=== PATIENT | female | born 1950 | race Caucasian/White ===

== ENCOUNTER 2017-03-01 13:06 | Emergency (ER) | payer OTHER, MEDICARE ==
[2017-03-01] MEDS ORDERED: ALBUTEROL SULFATE 0.083% NEB 2.5 MG/3 ML AMPUL NEB ONE (13:20)
[2017-03-01] MEDS ORDERED: IPRATROPIUM/ALBUTEROL 0.5-2.5 MG/3 ML AMPUL NEB ONE (13:20)
--- NOTE | 2017-03-01 13:21 | ER Document Report ---
ED Respiratory Problem - General Chief Complaint: Altered Mental Status Stated Complaint: ALTERED MENTAL STATUS Time Seen by Provider: 03/01/17 13:10 Mode of Arrival: Ambulatory Information source: Patient Notes: Patient is a 66-year-old female on hospice with a DNR due to her COPD and chronic respiratory failure who presents to the ER today for 30 hours of drowsiness. states that she did hit her head on a cabinet 2 days ago and has been very sleepy since. He states the last time she was this drowsy her CO2 was high and she was admitted to the hospital which is happened multiple times. She denies any nausea, vomiting. She has BiPAP and is on 7 L of oxygen at home. states she has not been using her BiPAP because she does not like the mask. She also takes ipratropium and albuterol treatments at home which she has not been on because she does not like the mask. She still smokes every day. TRAVEL OUTSIDE OF THE [place] IN LAST 30 DAYS: No - Related Data Allergies/Adverse Reactions: Sulfa (Sulfonamide Antibiotics) Allergy (Severe, Verified 06/24/16 10:57) Past Medical History - General Information source: Patient, Relative - Social History Smoking Status: Current Every Day Smoker Family History: None - Past Medical History Cardiac Medical History: Reports: Hx Hypercholesterolemia Denies: Hx Coronary Artery Disease, Hx Heart Attack, Hx Hypertension Pulmonary Medical History: Reports: Hx COPD Denies: Hx Asthma, Hx Bronchitis, Hx Pneumonia Neurological Medical History: Denies: Hx Cerebrovascular Accident, Hx Seizures Endocrine Medical History: Reports: Hx Hypothyroidism GI Medical History: Reports: Hx Gastroesophageal Reflux Disease Musculoskeltal Medical History: Reports Hx Arthritis - rheumatoid arthritis Psychiatric Medical History: Reports: Hx Anxiety, Hx Depression Past Surgical History: Reports: Hx Hysterectomy, Hx Orthopedic Surgery - R. hip replacement, L. Shoulder OIF - Immunizations Hx Diphtheria, Pertussis, Tetanus Vaccination: Yes Hx Pneumococcal Vaccination: 08/02/12 Review of Systems - Review of Systems Constitutional: See HPI EENT: No symptoms reported Cardiovascular: No symptoms reported Respiratory: See HPI Gastrointestinal: No symptoms reported Genitourinary: No symptoms reported Female Genitourinary: No symptoms reported Musculoskeletal: No symptoms reported Skin: No symptoms reported Hematologic/Lymphatic: No symptoms reported Neurological/Psychological: See HPI Physical Exam - Vital signs Vitals: Temp Pulse BP Pulse Ox 98.0 F 74 128/57 H 98 03/01/17 13:15 03/01/17 13:15 03/01/17 13:15 03/01/17 13:15 - Notes Notes: PHYSICAL EXAMINATION: GENERAL:Chronically ill-appearing, cachectic, in no acute distress. HEAD: Atraumatic, normocephalic. EYES: Pupils equal round and reactive to light, extraocular movements intact, sclera anicteric, conjunctiva are normal. ENT: airway patent NECK: Normal range of motion, supple without lymphadenopathy LUNGS: CTAB and equal. No wheezes rales or rhonchi. HEART: Regular rate and rhythm without murmurs EXTREMITIES: Normal range of motion, no pitting edema. No cyanosis. NEUROLOGICAL: Cranial nerves grossly intact. Normal sensory/motor exams. PSYCH: Normal mood, normal affect. SKIN: Warm, Dry, normal turgor, no rashes or lesions noted Course - Re-evaluation Re-evalutation: 03/01/17 15:34 She is awake, alert and oriented to person place and time, answering questions very well, and does appear tired but other than that is able to make her own decisions. Patient would like to go home. Patient is hypercapnic with a PCO2 of 88 and a CO2 of 44, however patient has BiPAP and oxygen and breathing treatments all at home. I have advised her and her that BiPAP is what she really needs to be wearing at home to get the CO2 down, she agrees to wear at home but refuses to come into the hospital. As she is on hospice and a DNR I discussed this with Dr. Vaz, my attending at the time who agrees that she can go home. 03/01/17 15:36 - Vital Signs Vital signs: Temp Pulse Resp BP Pulse Ox 98.0 F 74 23 H 171/131 H 95 03/01/17 13:15 03/01/17 13:15 03/01/17 15:01 03/01/17 15:00 03/01/17 15:01 - Laboratory Result Diagrams: 03/01/17 14:11 03/01/17 14:11 Laboratory results interpreted by me: 03/01/17 03/01/17 03/01/17 14:11 14:11 14:21 RBC 3.59 L MCV 108 H MCH 35.9 H Seg Neutrophils % 80.8 H Lymphocytes % 7.4 L VBG pH 7.27 L VBG pCO2 88.3 H* VBG HCO3 39.9 H Chloride 94 L Carbon Dioxide 44 H* Anion Gap 4 L BUN 22 H AST 37 H Urine Ketones Urine Ascorbic Acid 03/01/17 15:00 RBC MCV MCH Seg Neutrophils % Lymphocytes % VBG pH VBG pCO2 VBG HCO3 Chloride Carbon Dioxide Anion Gap BUN AST Urine Ketones 20 H Urine Ascorbic Acid 40 H Discharge - Discharge Clinical Impression: CO2 retention Acute and chronic respiratory failure Qualifiers: Respiratory failure complication: hypoxia and hypercapnia Qualified Code(s): J96.21 - Acute and chronic respiratory failure with hypoxia; J96.22 - Acute and chronic respiratory failure with hypercapnia Condition: Fair Disposition: HOME, SELF-CARE Additional Instructions: Please wear your BiPAP! Return immediately for any new or worsening symptoms. Follow up with primary care provider, call tomorrow to make followup appointment.
--- NOTE | 2017-03-01 13:59 | RADIOLOGY REPORT (SQ) ---
EXAM DESCRIPTION: CHEST SINGLE VIEW COMPLETED DATE/TIME: 03/01/2017 1:42 pm REASON FOR STUDY: hit head, ams, hx copd COMPARISON: 06/26/2016 EXAM PARAMETERS: NUMBER OF VIEWS: One view. TECHNIQUE: Single frontal radiographic view of the chest acquired. RADIATION DOSE: NA LIMITATIONS: None. FINDINGS: LUNGS AND PLEURA: No opacities, masses or pneumothorax. No pleural effusion. No vascular congestion or pulmonary edema. MEDIASTINUM AND HILAR STRUCTURES: No masses. Contour normal. HEART AND VASCULAR STRUCTURES: Heart normal in size. Normal vasculature. BONES: No acute findings. HARDWARE: Orthopedic hardware left proximal humerus transfixing an old humeral fracture. OTHER: No other significant finding. IMPRESSION: No acute findings. No recurrent pulmonary edema or congestive heart failure. TECHNICAL DOCUMENTATION: JOB ID: [id number]
--- NOTE | 2017-03-01 14:03 | RADIOLOGY REPORT (SQ) ---
EXAM DESCRIPTION: CT HEAD WITHOUT COMPLETED DATE/TIME: 03/01/2017 1:52 pm REASON FOR STUDY: hit head, ams, hx copd COMPARISON: 03/08/2016. TECHNIQUE: Axial images acquired through the brain without intravenous contrast. Images reviewed wi th bone, brain and subdural windows. Images stored on PACS. All CT scanners at this facility use dose modulation, iterative reconstruction, and/or weight based d osing when appropriate to reduce radiation dose to as low as reasonably achievable (ALARA). [facility]: Dose Right [facility]: CareDose [facility]: Dose Right [facility]: Teradose 4D [facility]: Smart Networked Insights RADIATION DOSE: Up-to-date CT equipment and radiation dose reduction techniques were employed. CTDIv ol: 48.6 - 49.0 mGy. DLP: 1834 mGy-cm.mGy. LIMITATIONS: None. FINDINGS: VENTRICLES: Prominent. CEREBRUM: No masses. No hemorrhage. No midline shift. Areas of low density in the white matter mos t likely due to chronic micro-vascular ischemic change. No evidence for acute infarction. CEREBELLUM: No masses. No hemorrhage. No alteration of density. No evidence for acute infarction. EXTRAAXIAL SPACES: Age-related involutional change. No fluid collections. No masses. ORBITS AND GLOBE: No intra- or extraconal masses. Normal contour of globe without masses. CALVARIUM: No fracture. PARANASAL SINUSES: No fluid or mucosal thickening. SOFT TISSUES: No mass or hematoma. OTHER: No other significant finding. IMPRESSION: CHRONIC CHANGES OF ATROPHY AND MICROVASCULAR ISCHEMIA. NO ACUTE PROCESS. TECHNICAL DOCUMENTATION: JOB ID: [id number] Quality ID # [id number]: Final reports with documentation of one or more dose reduction techniques (e.g., Au tomated exposure control, adjustment of the mA and/or kV according to patient size, use of iterative reconstruction technique) 2010 [employer]- All Rights Reserved
[2017-03-01 14:28] LABS: ABSOLUTE LYMPHOCYTES (AUTO) 0.5 10^3/uL (0.5-4.7); ABSOLUTE MONOCYTES (AUTO) 0.8 10^3/uL (0.1-1.4); ABSOLUTE NEUT (AUTO) 5.8 10^3/uL (1.7-8.2); BASOPHILS % (AUTO) 0.4 % (0-2); EOSINOPHILS % (AUTO) 0.6 % (0-6); HEMATOCRIT 38.6 % (36.0-47.0); HEMOGLOBIN 12.9 g/dL (12.0-15.5); HGB HCT DIFFERENCE 0.1; LYMPHOCYTES % (AUTO) 7.4 % (13-45); MEAN CORPUSCULAR HEMOGLOBIN 35.9 pg (27.0-33.4); MEAN CORPUSCULAR HGB CONC 33.3 g/dL (32.0-36.0); MEAN CORPUSCULAR VOLUME 108 fl (80-97); MONOCYTES % (AUTO) 10.8 % (3-13); RED BLOOD COUNT 3.59 10^6/uL (3.72-5.28); RED CELL DISTRIBUTION WIDTH 13.7 % (11.5-14.0); SEGMENTED NEUTROPHILS % (AUTO) 80.8 % (42-78); WHITE BLOOD COUNT 7.2 10^3/uL (4.0-10.5)
[2017-03-01 14:40] LABS: ALANINE AMINOTRANSFERASE 30 U/L (9-52); ALBUMIN 3.8 g/dL (3.5-5.0); ALKALINE PHOSPHATASE 72 U/L (38-126); ASPARTATE AMINO TRANSFERASE 37 U/L (14-36); BILIRUBIN,DIRECT 0.3 mg/dL (0.0-0.4); BILIRUBIN,TOTAL 0.3 mg/dL (0.2-1.3); BLOOD UREA NITROGEN 22 mg/dL (7-20); CALCIUM 9.1 mg/dL (8.4-10.2); CHLORIDE 94 mmol/L (98-107); CREATININE RESULT 0.52 mg/dL (0.52-1.25); GLUCOSE 110 mg/dL (75-110); POTASSIUM 4.4 mmol/L (3.6-5.0); TOTAL PROTEIN 6.6 g/dL (6.3-8.2)
[2017-03-01 14:42] LABS: VENOUS BLOOD BASE EXCESS 9.6 mmol/L; VENOUS BLOOD HCO3 39.9 mmol/L (20-32); VENOUS BLOOD PH 7.27 (7.30-7.42)
[2017-03-01 14:48] LABS: VENOUS BLOOD PCO2 88.3 mmHg (35-63)
[2017-03-01 14:49] LABS: ANION GAP 4 (5-19)
[2017-03-01 15:10] LABS: CARBON DIOXIDE 44 mmol/L (22-30)
[2017-03-01 15:23] LABS: APPEARANCE,URINE SLIGHTLY-CLOUDY; BILIRUBIN,URINE NEGATIVE (NEGATIVE); GLUCOSE, URINE NEGATIVE (NEGATIVE); KETONES,URINE 20 mg/dL (NEGATIVE); LEUKOCYTE ESTERASE,URINE NEGATIVE (NEGATIVE); NITRITE,URINE NEGATIVE (NEGATIVE); PROTEIN,URINE NEGATIVE (NEGATIVE); URINE SPECIFIC GRAVITY 1.024; UROBILINOGEN,URINE NEGATIVE mg/dL (<2.0)
[2017-03-01 16:11] VITALS: BP 125/69
--- NOTE | 2017-03-01 20:29 | EKG REPORT ---
SEVERITY:- ABNORMAL ECG - SINUS RHYTHM RIGHT BUNDLE BRANCH BLOCK : Confirmed by: Louie Langston MD 01-Mar-2017 20:28:43
== END 2017-03-01 16:11 | disposition home or self-care (01) ==
LOC: ER 13:06
DX: E87.2 Acidosis (principal); J96.21 Acute and chronic respiratory failure with hypoxia; R41.82 Altered mental status, unspecified; J44.9 Chronic obstructive pulmonary disease, unspecified; F17.200 Nicotine dependence, unspecified, uncomplicated
CPT/HCPCS: 93005; 94640; 99285; 36415; 85025; 80053; 81001; 82803; 71010; 70450; 93010; A9270 ×2; J7620

== ENCOUNTER → 2017-05-05 | Outpatient (CLI) | payer MEDICARE ==
--- NOTE | 2017-05-05 16:27 | XCELERA REPORT ---
[address] [address] Lower Extremity Arterial Evaluation Name: SHEILA SIMONS Age: 66 yrs Gender: Female : 1950 Patient Status: Outpatient Patient Location: Study Date: 05/05/2017 12:49 PM Procedure: A color flow and duplex scan of the lower extremity arteries was performed bilaterally with velocity and waveform anaylsis. Reason For Study: ULCER Ordering Physician: SVEN NUGENT Performed By: Peyton Andrews Measurements and Calculations Right Left PERSONAL FINANCE INSTRUCTOR PSV 209.5 187.7 cm/sec Prox PFA PSV 85.1 -84.3 cm/sec Prox SFA PSV 158.4 -159.9 cm/sec Mid SFA PSV -158.5 -172.9 cm/sec Dist SFA PSV -162.7 -161.1 cm/sec Prox Pop A PSV 97.7 89.9 cm/sec Dist FUENTES PSV 90.4 92.1 cm/sec Dist CRITICAL CARE TECHNICIAN PSV 78.6 68.2 cm/sec Jason Pedis PSV 70.4 67.7 cm/sec Right Side Arterial Evaluation Normal velocity and triphasic waveforms noted in the Deep Femoral artery. Biphasic from the Common Femoral to the infrageniculate vessels. 20-49 % stenosis at the inflow vessels. Ankle Brachial index is 1.03. Left Side Arterial Evaluation Normal velocity and triphasic waveforms noted in the Deep Femoral artery. Biphasic from the Common Femoral to the infrageniculate vessels. 20-49 % stenosis at the inflow vessels. Ankle Brachial index is 0.9. Interpretation Summary Moderate hemodynamically significant lesions in the bilateral lower extremities, on duplex imaging, at rest. : SVEN NUGENT > Sven Nugent
== END ==
LOC: SP 12:45
PROVIDERS: ATTEND Surgery
DX: L97.212 Non-pressure chronic ulcer of right calf with fat layer exposed (principal)
CPT/HCPCS: 93925